=== PATIENT | female | born 1990 | race Caucasian/White ===

== ENCOUNTER 2018-05-10 21:49 | Emergency (ER) | payer OTHER, MEDICAID ==
[~2018-05-10] VITALS: Ht 149.9 cm; Wt 55.3 kg
[2018-05-10 21:52] VITALS: BP 108/71
--- NOTE | 2018-05-10 22:15 | NUR ---
PT AMBULATED TO BED 9.
--- NOTE | 2018-05-10 22:15 | NUR ---
PATIENT PRESENTS TO ED WITH C/O HEADACHE/ EMESIS AND DIZZINESS. 11 WEEKS .G 3, P2. PT SKIN IS PINK/WARM/DRY; AAOX4 WITH EVEN AND STEADY GAIT; LUNGS CLEAR BL; HR EVEN AND REGULAR; PATIENT STATES PAIN OF 8/10 AT THIS TIME; PATIENT POSITIONED FOR COMFORT; HOB ELEVATED; BEDRAILS UP X2; BED DOWN. ER MD MADE AWARE OF PT STATUS.
[2018-05-10 22:19] LABS: APPEARANCE,URINE HAZY (CLEAR); BILIRUBIN,URINE NEGATIVE (NEGATIVE); BLOOD, URINE NEGATIVE (NEGATIVE); COLOR,URINE YELLOW (YELLOW); LEUKOCYTE ESTERASE ,URINE 2+ (NEGATIVE); NITRITE, URINE NEGATIVE (NEGATIVE); UGLUCOSE NEGATIVE (NEGATIVE)
[2018-05-10] MEDS ORDERED: PREN-380 PO (22:21)
[2018-05-10] MEDS ORDERED: METO-485 PO (22:21)
[2018-05-10] MEDS ORDERED: VITD1000 PO (22:21)
[2018-05-10] MEDS ORDERED: MECLIZINE 25 MG TAB PO ONE (22:25)
[2018-05-10 22:38] LABS: RBC,URINE 0-5 (RARE) /HPF (0-5)
[2018-05-10 22:39] LABS: CALCIUM OXALATE CRYSTALS,UR 0-10 /HPF (None Seen)
--- NOTE | 2018-05-10 23:07 | NUR ---
AWAITING DISCHARGE ORDERS FROM DR ROBLERO.
[2018-05-10 23:31] VITALS: BP 105/69
== END 2018-05-10 23:30 | disposition home or self-care (01) ==
LOC: MED 21:49
DX: O26.891 Other specified pregnancy related conditions, first trimester (principal); H65.93 Unspecified nonsuppurative otitis media, bilateral; H81.13 Benign paroxysmal vertigo, bilateral; Z3A.11 11 weeks gestation of pregnancy; Z79.899 Other long term (current) drug therapy
CPT/HCPCS: 81001; 81025; 82948; 87086; 99284; J8597

== ENCOUNTER 2018-05-11 16:23 | Inpatient (IN) | payer MEDICAID, OTHER ==
[~2018-05-11] VITALS: Ht 162.6 cm; Wt 72.6 kg
[~2018-05-11 16:23] MED LIST: METO-485 PO; PREN-380 PO; VITD1000 PO
[2018-05-11 16:47] VITALS: BP 116/65
--- NOTE | 2018-05-11 16:54 | NUR ---
urine cup handed to pt
--- NOTE | 2018-05-11 16:56 | NUR ---
aao pt. accompanied by 11wks iup c/o lower back cramping pain radiating to knees x today chills, unable to tolerate PO's, persistant headache --denies injury/trauma ---seen yesterday in our ER dx ear infection, vertigo rx meclizine ---also almost complete with ampicillin course for uti hx----denies rx----ampicillin, ,
[2018-05-11] MEDS ORDERED: MORPHINE SULFATE 4 MG/ML SYR IVP ONE (18:40)
[2018-05-11] MEDS ORDERED: cefTRIAXone 2,000 MG in DEXTROSE 5% 100 ML IV ONE (18:40)
[2018-05-11] MEDS ORDERED: NACL 0.9% 1,000 ML IV ONE (18:40)
[2018-05-11 19:06] LABS: HEMATOCRIT 36.2 % (36-48); HEMOGLOBIN 12.1 g/dL (12.0-16.0); MEAN CORPUSCULAR HEMOGLOBIN 29 pg (27-31); MEAN CORPUSCULAR HGB CONC 34 g/dL (33-37); MEAN CORPUSCULAR VOLUME 86.5 fL (80-94); PLATELET COUNT (AUTO) 172 K/uL (140-450); RED BLOOD CELL COUNT(AUTO) 4.19 MIL/uL (4.20-5.40); RED CELL DISTRIBUTION WIDTH 13.9 % (11.6-13.7); WHITE BLOOD COUNT (AUTO) 15.8 K/uL (4.8-10.8)
[2018-05-11 19:06] LABS: BILIRUBIN,URINE NEGATIVE (NEGATIVE); BLOOD, URINE NEGATIVE (NEGATIVE); COLOR,URINE YELLOW (YELLOW); LEUKOCYTE ESTERASE ,URINE NEGATIVE (NEGATIVE); NITRITE, URINE NEGATIVE (NEGATIVE); PH,URINE 6.5 (5.0-9.0); UGLUCOSE NEGATIVE (NEGATIVE)
[2018-05-11] MEDS ORDERED: cefTRIAXone 2,000 MG VIAL ONE (19:08)
--- NOTE | 2018-05-11 19:16 | NUR ---
PT TAKEN OFF THE UNIT VIA WHEEL CHAIR FOR US
--- NOTE | 2018-05-11 19:18 | NUR ---
RECEIVED REPORT FROM SHERRIE CARDONA. TRANSFER OF CARE AT THIS TIME.
[2018-05-11 19:27] LABS: APPEARANCE,URINE HAZY (CLEAR)
[2018-05-11 19:29] LABS: RBC,URINE 0-5 (RARE) /HPF (0-5); WBC,URINE 0-5 (RARE) /HPF (0-5)
--- NOTE | 2018-05-11 19:30 | NUR ---
PATIENT RETURN FROM US.
[2018-05-11 19:31] LABS: ALBUMIN 3.1 g/dL (3.4-5.0); CARBON DIOXIDE 21.5 mmol/L (21-32); CREATININE 0.8 mg/dL (0.6-1.3); TOTAL BILIRUBIN 0.5 mg/dL (0.0-1.0)
--- NOTE | 2018-05-11 19:32 | NUR ---
PATIENT RESTING AT THIS TIME. NO SIGNS OF DISTRESS.
[2018-05-11 19:39] LABS: ANION GAP 13.9 (8-16); POTASSIUM 3.4 mmol/L (3.5-5.1)
[2018-05-11 19:42] LABS: LYMPHOCYTES % (MANUAL) 3 % (20-46)
[2018-05-11] MEDS ORDERED: NACL 0.9% 2,000 ML IV ONE (20:30)
[2018-05-11] MEDS ORDERED: ACETAMINOPHEN 325 MG TAB PO PRN (20:45)
--- NOTE | 2018-05-11 21:21 | NUR ---
Pt transferred to Tele 111B via BED WITH DULCE PATTERSON .
--- NOTE | 2018-05-11 21:22 | NUR ---
Patient will be admitted to care of DR. SAMUELS. Admited to TELE. Will go to room 111B. Belongings list completed. Report to EZEQUIEL CARDONA.
[2018-05-11 21:25] VITALS: BP 109/64
--- NOTE | 2018-05-11 21:25 | NUR ---
RECEIVED REPORT FROM DAYSHIFT NURSE AT BEDSIDE FOR CONTINUITY OF CARE. PT AAOX4. PT IV NOTED RAC 20G 2 NS BAGS RUNNING AT WIDE OPEN. NO SOB NO S/S OF DISTRESS ON RA. BED LOWERED PT ORIENTED TO ROOM WILL CONTINUE TO MONITOR.
[2018-05-11] MEDS: NACL 0.9% 1,000 ML IV SCH (23:00)
--- NOTE | 2018-05-11 23:00 | NUR ---
GAVE PT ICE PACK FOR SMITH. AND GAVE HEAT PACK FOR LOWER BACK PAIN. PT STATES SHE HAS NO PAIN AT THIS TIME. WILL CONTINUE TO MONITOR.
[2018-05-12] VITALS: BP 94/48
--- NOTE | 2018-05-12 02:20 | NUR ---
PT STATES SHE HAS A SORE THROAT. WILL CONTINUE TO MONITOR.
[2018-05-12] MEDS ORDERED: INFLUENZA VIRUS VACCINE QUAD 0.5 ML SYR IMVAC PRN ×2 (02:30→08:20)
[2018-05-12 04:00] VITALS: BP 105/62
[2018-05-12] MEDS: NACL 0.9% 1,000 ML IV SCH ×2 (06:02→16:10)
--- NOTE | 2018-05-12 07:30 | NUR ---
RECEIVED REPORT FROM LINER MAN RN. PT IN STABLE CONDITION. STATES SHE HAS 5/10 BACK PAIN BUT THE WARM PACKS ARE SUFFICIENT TO RELIEVE THE PAIN. STATES 7/10 SORE THROAT PAIN WHEN EATING BREAKFAST. WILL REPORT TO DR. SAMUELS. NO OTHER COMPLAINTS OF DISCOMFORT AT THIS TIME. SKIN INTACT. LUNGS CTA. HEART RHYTHM IS REGULAR. AFEBRILE. DENIES CHILLS. PT IS AMBULATORY. IV SITE PATENT AND ASYMPTOMATIC, INFUSING IVF PER MD ORDERS. ALL SAFETY PRECAUTIONS IN PLACE, WILL CONTINUE TO MONITOR.
[2018-05-12 07:52] LABS: HEMATOCRIT 31.9 % (36-48); HEMOGLOBIN 10.7 g/dL (12.0-16.0); MEAN CORPUSCULAR HEMOGLOBIN 29 pg (27-31); MEAN CORPUSCULAR HGB CONC 34 g/dL (33-37); MEAN CORPUSCULAR VOLUME 87.8 fL (80-94); PLATELET COUNT (AUTO) 150 K/uL (140-450); RED BLOOD CELL COUNT(AUTO) 3.63 MIL/uL (4.20-5.40); WHITE BLOOD COUNT (AUTO) 14.6 K/uL (4.8-10.8)
[2018-05-12 08:00] VITALS: BP 111/70
[2018-05-12 08:04] LABS: ALBUMIN 2.4 g/dL (3.4-5.0); CARBON DIOXIDE 21.5 mmol/L (21-32); CREATININE 0.6 mg/dL (0.6-1.3); POTASSIUM 3.5 mmol/L (3.5-5.1); TOTAL BILIRUBIN 0.3 mg/dL (0.0-1.0)
[2018-05-12 08:15] LABS: BASOPHILS % (MANUAL) 0 % (0-2); EOSINOPHILS % (MANUAL) 0 % (0-4); LYMPHOCYTES % (MANUAL) 13 % (20-46); MONOCYTES % (MANUAL) 5 % (5-12)
--- NOTE | 2018-05-12 08:38 | NUR ---
PATIENT VOMITED LESS THAN 10 ML OF BREAKFAST. SAYS THE EGGS DID NOT "SIT WELL". BUT DENIES ANY MORE NAUSEA AND IS CONTINUING TO EAT BREAKFAST.
--- NOTE | 2018-05-12 11:02 | NUR ---
OBTAINED STREP SWAB/CULTURE. WILL SEND TO LAB.
[2018-05-12 12:00] VITALS: BP 103/73
--- NOTE | 2018-05-12 14:00 | NUR ---
PATIENT REPORTS THAT THE HEATED TOWELS BEHIND THE BACK AND ICE PACK TO NECK "SIGNIFICANTLY HELPS WITH THE PAIN". PT IS COMFORTABLE AT THIS TIME AND DOES NOT REQUIRE PAIN MEDICATION. WILL CONTINUE TO MONITOR.
--- NOTE | 2018-05-12 15:15 | NUR ---
DR. VAUGHN HERE TO ASSESS PATIENT. REVIEWED PATIENT CONDITION AND POC WITH DR. VAUGHN.
[2018-05-12 16:00] VITALS: BP 104/62
--- NOTE | 2018-05-12 17:04 | NUR ---
LOU FROM [employer], THE PATIENT'S INSURANCE, CALLED REGARDING PLANS TO TRANSFER PT DUE TO INSURANCE. DR. SAMUELS IS AWARE. FAXED FACE SHEET, H&P, AND MED LIST TO [phone] PER INSURANCE REQUEST.
--- NOTE | 2018-05-12 17:19 | NUR ---
PATIENT HAS BEEN INFORMED OF PLANS TO TRANSFER TO [facility]. VERBALIZED UNDERSTANDING. WILL NOTIFY PATIENT WHEN DETAILS ARE PROVIDED BY INSURANCE.
--- NOTE | 2018-05-12 17:53 | NUR ---
CALLED RADIOLOGY REGARDING CD IMAGES ORDER. 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
--- NOTE | 2018-05-12 18:48 | NUR ---
[facility] CALLED AT [phone], LOU STILL WAITING FOR BED AVAILABILITY AT [facility], ACCEPTING DR REILLY, LOU WILL CALL US WHEN SHE HAS BED ASSIGNMENT AND TRANSPORT ARRANGEMENT.
--- NOTE | 2018-05-12 19:20 | NUR ---
REPORT GIVEN TO TECHNICIAN CHEMICAL CLEANING RN AT BEDSIDE. RN AWARE OF TRANSFER PLANS. PT IN STABLE CONDITION.
--- NOTE | 2018-05-12 19:21 | NUR ---
RECEIVED REPORT FROM DAYSHIFT NURSE AT BEDSIDE FOR CONTINUITY OF CARE. PT AAOX4. PT IV NOTED RAC 20G NS 100ML/HR. NO SOB NO S/S OF DISTRESS ON RA. BED LOWERED CALL LIGHT WITHIN REACH WILL CONTINUE TO MONITOR.
[2018-05-12 20:00] VITALS: BP 111/71
--- NOTE | 2018-05-12 20:01 | NUR ---
[facility] CALLED TO REPORT PT WILL BE TRANSFER TO [facility] AT 9PM [facility] [employer]. PT AWARE.AND WAITING FOR CALL BACK FOR ROOM #.
--- NOTE | 2018-05-12 20:44 | NUR ---
CASE MANAGEMENT CALLED [facility] TO LET ME KNOW [facility] WILL SURGICAL [facility]NITTER HAND FRAME AT 2109. PHONE FOR NURSE [phone] OR [phone].
--- NOTE | 2018-05-12 21:00 | NUR ---
REPORT GIVEN TO RN AT [facility].
--- NOTE | 2018-05-12 21:16 | NUR ---
[facility] HERE FOR CHEFS. REPORT GIVEN. PT HAS NO SOB NO S/S OF DISTRESS ON RA. NS D/C. PT OFF THE FLOOR.
--- NOTE | 2018-05-13 15:11 | NUR ---
RETRO H&P AND DC SUMMARY FAXED TO [facility] [phone] # [phone]
== END 2018-05-12 21:15 | disposition short-term general hospital (02) | DRG 781 ==
LOC: MED 16:23 → MTU 21:04
PROVIDERS: ADMIT Hospitalist; ATTEND Hospitalist
DX: O98.811 Other maternal infectious and parasitic diseases complicating pregnancy, first trimester (principal); A41.9 Sepsis, unspecified organism; O23.01 Infections of kidney in pregnancy, first trimester; J02.9 Acute pharyngitis, unspecified; O26.891 Other specified pregnancy related conditions, first trimester; Z3A.11 11 weeks gestation of pregnancy
CPT/HCPCS: 36415; 76770; 76830; 80053; 81001; 81025; 83605; 84443; 85025; 86308; 87040; 87081; 90658; 96361; 96365; 96375; 99285; J0696; J2270; J7030; J7060; Q0092

== ENCOUNTER 2023-12-12 11:43 | Emergency (ER) | payer MEDICAID, OTHER ==
[~2023-12-12] VITALS: Ht 149.9 cm; Wt 56.2 kg
[~2023-12-12 11:43] MED LIST changes: +CHOL100084 PO; -VITD1000 PO
[2023-12-12 11:46] VITALS: BP 103/69; PULSE 61; RESP 24; TEMP 98.2; O2SAT 100
[2023-12-12] MEDS: IPRATROPIUM 0.02% 0.5 MG/2.5 ML NEBU INH ONE (12:04)
[2023-12-12] MEDS: ALBUTEROL 0.083% 2.5 MG/3 ML NEBU INH ONE (12:04)
[2023-12-12 12:05] VITALS: PULSE 78; RESP 21; O2SAT 98
[2023-12-12] MEDS: DEXAMETHASONE 10 MG/ML VIAL PO ONE (13:07)
[2023-12-12 13:31] LABS: FLU A ANTIGEN negative (NEGATIVE); FLU B ANTIGEN negative (NEGATIVE)
[2023-12-12] MEDS ORDERED: ALBU0.0912 IH (13:52)
[2023-12-12] MEDS ORDERED: LORA1T1237 PO (13:52)
[2023-12-12 14:34] VITALS: TEMP 98.2
[2023-12-12 14:36] VITALS: BP 109/63; PULSE 83; RESP 23; O2SAT 98
== END 2023-12-12 14:34 | disposition home or self-care (01) ==
LOC: MED 11:43
DX: J45.901 Unspecified asthma with (acute) exacerbation (principal); J06.9 Acute upper respiratory infection, unspecified; Z20.822 Contact with and (suspected) exposure to COVID-19; Z79.899 Other long term (current) drug therapy
CPT/HCPCS: 71045; 87426; 87804; 94640; 99284; J1100; J7613; J7644